=== PATIENT | female | born 1955 | race Two or more races ===

== ENCOUNTER 2024-05-27 11:07 | Emergency (ER) | payer OTHER ==
[~2024-05-27] VITALS: Ht 144.8 cm; Wt 58.1 kg
[2024-05-27] MEDS ORDERED: ZESTRIL10 M1 PO (11:28)
[2024-05-27] MEDS ORDERED: SYNJARDY XR 101 EACH PO (11:28)
[2024-05-27] MEDS ORDERED: GLIMEPIRIDE1 MG (11:28)
[2024-05-27] MEDS ORDERED: LODINE300 MG PO (11:29)
[2024-05-27] MEDS ORDERED: FOSAMAX70 MG PO (11:29)
[2024-05-27] MEDS ORDERED: CRESTOR40 MG PO (11:29)
[2024-05-27] MEDS ORDERED: HYOSCYAMINE SULFATE 0.125 MG TAB.SUBL SL ONE (15:00)
[2024-05-27 15:24] LABS: HEMATOCRIT 42.4 % (36.0-45.00); HEMOGLOBIN 14.3 g/dL (12.0-15.00); MEAN CELL VOLUME 82.7 fL (80.00-100.00); MEAN CORPUSCULAR HEMOGLOBIN 27.8 pg (27.00-32.0); MEAN CORPUSCULAR HGB CONC 33.7 g/dl (32.0-36.0); PLATELET COUNT 340 K/uL (150-450); RED BLOOD COUNT 5.13 M/uL (4.00-6.00); RED CELL DISTRIBUTION WIDTH 14.1 % (11.5-14.5)
[2024-05-27 16:31] LABS: URINE APPEARANCE Clear; URINE BILIRRUBIN Negative (NEGATIVE); URINE BLOOD Negative; URINE COLOR Yellow; URINE LEUKOCYTE Negative; URINE NITRATE Negative; URINE PROTEIN Trace (NEGATIVE); URINE UROBILINOGEN 0.2 E.U./dl
[2024-05-27 16:35] LABS: URINE EPITHELIAL CELLS 32.1 uL (0.0-38.8); URINE RBC 7.2 uL (0.0-20.8); URINE WBC 26.4 uL (0.0-23.2)
[2024-05-27 16:36] LABS: URINE CAST 0.58 uL (0.0-1.40); URINE GLUCOSE >=1000 MG/DL (NEGATIVE); URINE KETONE 80 (NEGATIVE)
[2024-05-27 16:48] LABS: ALBUMIN 4.3 gm/dL (3.4-5.0); BILIRUBIN TOTAL 0.43 mg/dL (0.3-1.2); CREATININE SERUM 0.6 mg/dL (0.55-1.02); GFR 99.41; GLOBULINA 4.5 G/DL (2.4-3.5); POTASSIUM 4.2 mEq/L (3.5-5.1); TOTAL PROTEIN 8.8 gm/dL (6.4-8.2)
[2024-05-27] MEDS ORDERED: DICY20TA PO (18:37)
[2024-05-27] MEDS ORDERED: PEPCID AC20 MG PO (18:37)
== END 2024-05-27 18:48 | disposition home or self-care (01) ==
LOC: ER 11:10
PROVIDERS: Emergency Medicine
DX: K29.70 Gastritis, unspecified, without bleeding (principal); R10.9 Unspecified abdominal pain; Z20.822 Contact with and (suspected) exposure to COVID-19; I10 Essential (primary) hypertension; E11.9 Type 2 diabetes mellitus without complications; Z79.84 Long term (current) use of oral hypoglycemic drugs